=== PATIENT | male | born 1965 | race Caucasian/White ===

== ENCOUNTER 2023-05-15 18:13 | Emergency (ER) | payer OTHER, SELFPAY ==
[2023-05-15 18:25] VITALS: BP 131/83
--- NOTE | 2023-05-15 19:37 | ED.GENMED ---
History of Present Illness
General
Chief Complaint: Catheter/Tube Problem
Source: patient
Exam Limitations: none
Time Seen by Provider: 05/15/23 18:34
Nursing documentation reviewed up to this point in time: agreed with
Travel History
Have you had any contact with someone who has COVID-19?: No
Do you have any symptoms of coronavirus? Fever > 100 degrees, chills, cough, shortness of breath, sore throat, loss of taste or smell, muscle aches, or headache?: No
History of Present Illness
History of Present Illness:
Patient to ED with complaint of leaking from around pierce catheter. He reports he is due for a catheter change on Sunday. Brought self to ED for eval.
Past History
Past History
ED Past Medical History: HTN, Hypercholesterolemia and Renal failure
ED Past Surgical History: None
Social History
Tobacco: Non-smoker
Review of Systems
Review of Systems
Allergies reviewed?: Yes
All Other Systems: ROS reviewed and negative except as documented in HPI and ROS
Constitutional: Reports no symptoms
EENT: Reports no symptoms
Respiratory: Reports no symptoms
Cardiac: Reports no symptoms
ABD/GI: Reports no symptoms
: Reports other (leaking from pierce catheter)
Musculoskeletal: Reports no symptoms
Skin: Reports no symptoms
Neurological: Reports no symptoms
Phy Exam
General Physical Exam
General Presentation: well appearing and no apparent distress
General age: appears stated age
General Skin: warm and dry
General Habitus: normal
Gastrointestinal Exam
Gastrointestinal Exam: normal bowel sounds, non tender, soft and no organomegaly
Musculoskeletal Exam
Musculoskeletal Exam: full ROM
Skin Exam
Skin Exam: normal color
Psychiatric Exam
Psychiatric Exam: normal mood/affect
Course
Vital Signs
Initial and Last Documented VS:
Initial Vital Signs
Temp Pulse BP Pulse Ox
98.9 F 107 131/83 98
05/15/23 18:25 05/15/23 18:25 05/15/23 18:25 05/15/23 18:25
Last Documented Vital Signs
Temp Pulse BP Pulse Ox
98.9 F 107 131/83 98
05/15/23 18:25 05/15/23 18:25 05/15/23 18:25 05/15/23 18:25
*Critical Care Note
Total Time (30-74mins, 75-104mins- exclusive of procedures): Not Applicable
Update Note
Update Note:
Pierce changed by RN without incident. He is discharged home, will follow up with urology as scheduled.
ED Attending Note
-
Portions of this chart may have been created with voice recognition software.� Occasional wrong word or��sound alike� substitutions may have occurred due to the inherent limitations of voice recognition software.
Discharge Plan
Departure
Patient Disposition: Home (Routine Discharge)
Date of Disposition: 05/15/23
Time of Disposition: 19:23
Patient with high blood pressure during this ER visit?: No
Condition: Good
Discharge Problem:
Encounter for Pierce catheter replacement
Instructions: How to Care for Your Pierce Catheter, Male
Prescriptions:
No Action
therapeutic multivitamin Tablet
1 tab PO DAILY
ascorbic acid (vitamin C) [Vitamin C] 500 mg Tablet
500 mg PO DAILY
cholecalciferol (vitamin D3) [Vitamin D3] 25 mcg (1,000 unit) Tablet
25 mcg PO DAILY
midodrine 5 mg tablet
10 mg PO TID
ciprofloxacin HCl 500 mg tablet
500 mg PO DAILY Qty: 7 0RF
Activity Restrictions/Additional Instructions:
Follow up with your urologist as scheduled
Interventions
Interventions:
*Nursing Disposition Last Done: 05/15/23 19:38
LS-Ytyyuj-Xjunxmnwtv Assessment Last Done: 05/15/23 19:36
ED-Male Genitourinary Assessment Last Done: 05/15/23 19:36
Discharge Date and Time
Discharge Date/Time: 05/15/23 19:38
== END 2023-05-15 19:38 | disposition home or self-care (01) ==
LOC: EMR 18:13
PROVIDERS: EMERGENCY PHYSICIAN Emergency Medicine; FAMILY PHYSICIAN Family Medicine
DX: T83.031A Leakage of indwelling urethral catheter, initial encounter (principal)
CPT/HCPCS: 99283; 51702

== ENCOUNTER 2024-08-01 05:54 | Day surgery (SDC) | payer OTHER, SELFPAY ==
[2024-07-22 14:11] VITALS: BMI 38.1
[2024-08-01] VITALS (10 sets, daily range): BP systolic 108–123; BP diastolic 64–79; BMI 38.1
[2024-08-01] MEDS: TYLENOL 1000 MG PO (06:28)
[2024-08-01] MEDS: HEPARIN 5000 UNITS SC (06:29)
--- NOTE | 2024-08-01 08:45 | OR.RPT ---
Operative Report
Operative Report
Primary Surgeon: Chela
Assisting: Andrey GAVIN
Pre-op Diagnosis: Incarcerated umbilical hernia
Post-op Diagnosis: Same
Procedure Performed: Robot assisted laparoscopic repair of incarcerated umbilical hernia (rTAPP)
Anesthesia Type: GETA + TAP block
Specimen / Cultures: None
Estimated Blood Loss: 10cc
Complications: None immediate
Operative Findings: 3.5cm x 2.5 cm umbilical hernia with incarcerated fat; 15cm x 15cm bard soft mesh
Date of surgery: 08/01/24
Indications:� This 59M developed a symptomatic incarcerated umbilical hernia. Robot assisted laparoscopic repair was planned.
Description of procedure:� The patient was taken to the operating room and positioned into supine position. The patient�s abdomen was prepped and draped in standard sterile fashion. A time-out was completed verifying correct patient, procedure,
site, positioning, and implants and special equipment prior to beginning this procedure.� A stab incision was made in the left upper quadrant, a Veress needle was inserted and proper position was confirmed by aspiration and saline drop test.
Following this, pneumoperitoneum was created with insufflation of carbon dioxide to 12 mmHg. Then a 8mm robotic trocar was inserted at the left anterior axillary line at the level of the umbilicus. The laparoscope was inserted and no injuries were
identified in the area. Under direct visualization, the initial trocar was exposed and two 8mm trocars were placed a hand's breadth above and below the initial trocar under direct visualization.
Attention was turned to the defect. The peritoneum was incised several cm superior to the defect and a peritoneal flap was developed in transverse and caudad directions using blunt and sharp dissection and judicious electrocautery. The defects
measured as above. The defect was closed with 0 PDS stratafix suture. Mesh was passed into the abdomen and centered on the defect and then placed against the underside of the abdominal wall and secured in place with 2-0 vicryl sutures at all four
corners as well as under the defect. The flap was closed over the mesh and secured with 2-0 monocryl stratafix suture. A 14g angiocath was used to decompress the preperitoneal space. The flap sealed and suctioned nicely up to the abdominal wall. The
mesh did not fold nor curl. A transversus abdominis plane block was then performed under laparoscopic vision with marcaine/decadron.
After ensuring adequate hemostasis, the trocars were removed and the pneumoperitoneum allowed to escape. The trocar incisions were closed at the skin level using 4-0 monocryl and topical skin adhesive. All counts were correct. The patient tolerated
the procedure well and was taken to the postanesthesia care unit in stable condition.
[2024-08-01] MEDS: DILAUDID 0.5 MG IV (09:09)
== END 2024-08-01 11:10 | disposition home or self-care (01) ==
LOC: SDS 05:54
PROVIDERS: ATTENDING PHYSICIAN Surgery; FAMILY PHYSICIAN Family Medicine
DX: K42.0 Umbilical hernia with obstruction, without gangrene (principal)
CPT/HCPCS: 49594; 36415; 93005; C1781

== ENCOUNTER 2024-12-12 14:40 | Inpatient (IN) | payer OTHER, SELFPAY ==
[2024-12-12 08:11] VITALS: BP 169/86
--- NOTE | 2024-12-12 08:52 | ED.GENMED ---
History of Present Illness
General
Chief Complaint: Back Pain
Time Seen by Provider: 12/12/24 08:40
Nursing documentation reviewed up to this point in time: agreed with
History of Present Illness
History of Present Illness:
59-year-old male presents to the ER for evaluation of right-sided flank pain which admittedly has been occurring intermittently over the past 4 months. He has not had any previous evaluation for this discomfort. He states that it typically comes
and goes in less than an hour but it has been more consistent over the past few days. He states that the pain has been severe enough over the past week that he has missed all of his dialysis treatments. He denies peripheral edema. He denies
dyspnea. He has been having retching and dry heaving, but today had a few episodes of emesis. He states that he sometimes noticed some 'black fluid' coming out of his mouth. He denies any bright red blood via his mouth or with his bowel
movements. He states he has been having regular bowel movements. He also still does urinate and denies any hematuria. He denies any recent antibiotic usage. He did has in the past experience urinary tract infections. He states that he is very
concerned because he was told during his workup for kidney transplant that his right kidney is very large and could be problematic. He denies fevers or chills. No cough or cold symptoms. No chest pain. No syncope.
Past History
Past History
ED Past Medical History: HTN, Hypercholesterolemia and Renal failure
ED Past Surgical History: None
Social History
Tobacco: Non-smoker
Review of Systems
Review of Systems
Allergies reviewed?: Yes
Phy Exam
Physical Exam
Physical Exam:
Patient is awake, alert, appears in no acute distress, head is NCAT, PERRL, EOMI mucous membranes tacky, conjunctiva pink, heart regular rate and rhythm without murmurs or ectopy, lungs are clear to auscultation without wheezes rales or rhonchi, no
JVD, abdomen is soft and nontender on palpation, positive right CVA tenderness, negative left CVA tenderness, fistula present left upper extremity with positive thrill, extremities with trace edema symmetric, GCS is 15
Course
Orders/Labs/Results
Orders:
Orders
12/12/24 08:46
CT Abd/pel Without Iv Or Oral Urgent
Comment:
Reason For Exam: R flank pain
Cardiac Monitoring- Treatment ONCE
12/12/24 08:47
Morphine Sulfate 4 mg IV NOW STA
12/12/24 08:48
Electrocardiogram (*1) Urgent
Reason for Study: Abdominal Pain
EKG- Treatment ONCE
12/12/24 08:58
Complete Blood Count/With Diff Urgent
Comprehensive Metabolic Panel Urgent
Prothrombin Time Urgent
12/12/24 10:03
Urinalysis Reflex To Culture Urgent
Date Specimen was Collected: 12/12/24
Time Specimen was Collected: 09:54
Urine Microscopic Reflex Cult Urgent
Urine Culture Urgent
VON Source: U
Specimen Description:
Date Specimen was Collected: 12/12/24
Time Specimen was Collected: 09:54
12/12/24 11:10
CefTRIAXone [Rocephin] 1,000 mg IV NOW STA
12/12/24 11:31
Urinalysis Urgent
Date Specimen was Collected: 12/12/24
Time Specimen was Collected: 11:29
Urine Microscopic Urgent
Date Specimen was Collected: 12/12/24
Time Specimen was Collected: 11:29
12/12/24 11:53
Sterile Water [Sterile Water For Injection] 10 ml .ROUTE .K-MED ONE
12/12/24 13:49
Admit/Transfer Patient As Directed
Co-Sign Provider:
Level of Care: Inpatient admission
Assign to:: Medical/Surgical
Physician / Group: HOSPITALIST; MOI
Diagnosis: CYSTITIS, ESRD ON HD
Reason for Hospitalization: CYSTITIS, ESRD ON HD
Expected length of stay greater than two midnights?: Yes
ELOS- Estimated Length of Stay in days: 3
I certify the patient meets the requirements for IP care: Yes
12/12/24 13:50
PRN Pain Medication Management As Directed
May give lesser potent ordered pain med per pt: Yes
preference::
Protocol:: Medication orders for pain may be administered in a
manner that supports deferring to patient preference
when the pt is:
- Requesting an ordered lesser potent pain medication.
Least to most potent pain medications are defined
as: acetaminophen < NSAID < tramadol < opioids
(morphine, oxycodone, hydromorphone).
- Requesting a lesser dose of the same medication IF
ORDERED.
- Requesting a less intrusive route of administration
if both routes are prescribed by the provider (PO <
IV).
12/12/24 13:55
Code Status As Directed
Resuscitation Status: Do not resuscitate
Based on pt advanced directive or healthcare POA form: Yes
12/12/24 13:57
DNR Bracelet Application ONCE
12/12/24 14:18
Code Status As Directed
Resuscitation Status: Full Code
Abnormal Lab Results
12/12/24 12/12/24 12/12/24
08:58 10:03 11:31
RBC 3.84 L 10^6/uL
(4.70-6.10)
Hgb 12.6 L g/dL
(13.0-18.0)
MCV 102.3 H fL
(80.0-94.0)
MCH 32.8 H pg
(27.0-31.0)
MCHC 32.1 L g/dL
(33.0-37.0)
Absolute Lymphs (auto) 0.8 L 10^3/uL
(1.2-3.4)
Lymphocytes % 13.3 L %
(20.5-51.1)
Eosinophils % 6.7 H %
(0-6)
Chloride 112 H mmol/L
(98-107)
BUN 74 H mg/dl
(9-20)
Creatinine 4.4 H* mg/dL
(0.7-1.3)
Glucose 114 H mg/dl
(70-99)
AST 16 L U/L
(17-59)
Total Protein 6.1 L g/dl
(6.3-8.2)
Urine Occult Blood 3+ A
(Negative)
Ur Occult Blood Reflex 4+ A
(Negative)
Urine Nitrite Positive A
(Negative)
Ur Leukocyte Esterase 3+ A
(Negative)
Leukocyte Esterase Rfl 3+ A
(Negative)
Urine RBC 50-60 A /HPF
(0-2)
Urine WBC >100 A /HPF
(0-5)
Urine WBC (Reflex) >100 A /HPF
(0-5)
Urine Bacteria Many A
(Negative)
Urine Bacteria (Reflex) Many A
(Negative)
Urine Albumin 3+ A
(Neg - Trace)
Urine Albumin (Reflex) 4+ A
(Neg - Trace)
12/12/24 08:58
12/12/24 08:58
CBC is reassuring. Kidney function is impaired though potassium is within normal limits
Vital Signs
Initial and Last Documented VS:
Initial Vital Signs
Temp Pulse Resp BP Pulse Ox
98.2 F 92 16 169/86 98
12/12/24 08:11 12/12/24 08:11 12/12/24 08:11 12/12/24 08:11 12/12/24 08:11
Last Documented Vital Signs
Temp Pulse Resp BP Pulse Ox
97.2 F 83 20 119/74 98
12/12/24 12:46 12/12/24 12:46 12/12/24 12:46 12/12/24 12:46 12/12/24 12:46
MDM/Problems Addressed
Differential Diagnosis Includes:
Differential diagnosis to consider but not limited to pyelonephritis, renal colic, bowel obstruction, colitis, diverticulitis, electrolyte dyscrasia, sepsis along with other etiologies considered
Chronic conditions affecting care:
End-stage renal disease on dialysis, GERD, obesity, hearing impairment
*Pulse Oximetry
SaO2: 98
Oxygen Mode of Delivery: Room air
Patient hypoxic: no
*EKG
Interpreted by ED Provider?: Yes (I independently viewed and interpreted twelve-lead EKG showing normal sinus rhythm, rate 80, incomplete right bundle branch block, no ST elevation, QTc measured at 461ms, nonspecific EKG without significant change
compared to prior from 07/22/2024)
*Machine Veneer Repairer Interpretation
Rate: normal (I independently viewed and interpreted rhythm strip showing normal sinus rhythm, no ectopy, incomplete right bundle branch block)
*Critical Care Note
Total Time (30-74mins, 75-104mins- exclusive of procedures): Not Applicable
Update Note
Update Note:
Will give morphine and obtain screening labs along with noncontrast CT of the abdomen pelvis for further evaluation. Will also obtain bladder scan. Patient agrees with plan at current, declining need for antiemetic at the current time. Will
reassess
1030: Patient feeling more comfortable after morphine. I discussed with patient CT scans concerning for ineffective drainage with currently placed Wheatley catheter along with inflammation of the bladder concerning for acute cystitis. I discussed
with patient need to swap out catheter to obtain urine sample and order antibiotics. Given pt has not been able to get to dialysis due to his pain and complicating nature of UTI with indwelling catheter, will plan for IV abx and overnight
observation.
full pt presentation reviewed with the hospitalist who accepts pt for admission
ED Attending Note
-
Portions of this chart may have been created with voice recognition software.� Occasional wrong word or��sound alike� substitutions may have occurred due to the inherent limitations of voice recognition software.
Discharge Plan
Departure
Patient Disposition: Admit
Date of Disposition: 12/12/24
Time of Disposition: 11:17
Presentation/result/management discussed w/ accepting MD/DO: Hospitalist
Discharge Problem:
Complicated urinary tract infection, ESRD (end stage renal disease), Acute flank pain
Interventions
Interventions:
*Risk Screen - Suicide Last Done: 12/12/24 08:11
*General Assessment Last Done: 12/12/24 11:33
*Neglect/Abuse Screening Last Done: 12/12/24 08:11
*ED- Fall Risk Assessment Last Done: 12/12/24 09:29
ED-Musculoskeletal Assessment Last Done: 12/12/24 09:28
[2024-12-12] MEDS: MORPHINE SULFATE 4 MG IV (09:15)
[2024-12-12 09:30] LABS: Hematocrit 39.3 % (39.0-52.0); Hemoglobin 12.6 g/dL (13.0-18.0); Mean Corp Hgb Conc. 32.1 g/dL (33.0-37.0); Mean Corpuscular Volume 102.3 fL (80.0-94.0); Nucleated Red Blood Cells % 0 % (-); Platelet Count 163 10^3/uL (130-400); Red Cell Dist. Width 13.3 % (11.5-14.5)
[2024-12-12 09:32] LABS: INR 0.96; PT 13.1 Sec (11.4-14.6)
[2024-12-12 09:45] LABS: ALT (SGPT) 21 U/L (0-50); AST (SGOT) 16 U/L (17-59); Albumin 3.5 g/dl (3.5-5.0); Alkaline Phosphatase 64 U/L (38-126); Blood Urea Nitrogen 74 mg/dl (9-20); Calcium 8.7 mg/dl (8.4-10.2); Carbon Dioxide 23 mmol/L (22-30); Chloride 112 mmol/L (98-107); Glucose 114 mg/dl (70-99); Potassium 3.7 mmol/L (3.5-5.1); Sodium 138 mmol/L (135-145); Total Protein 6.1 g/dl (6.3-8.2); eGFR 14.65
[2024-12-12 10:25] LABS: Urine Character Cloudy (Clear)
[2024-12-12 10:51] LABS: Urine Squamous Cell 0-2 /LPF (Few); Urine White Cell >100 /HPF (0-5)
[2024-12-12 11:52] LABS: Urine Character Cloudy (Clear)
[2024-12-12] MEDS: ROCEPHIN 1000 MG IV (11:55)
[2024-12-12 12:17] LABS: Urine Squamous Cell 0-2 /LPF (Few); Urine White Cell >100 /HPF (0-5)
[2024-12-12 12:19] LABS: Urine Red Blood Cell 50-60 /HPF (0-2)
[2024-12-12 12:46] VITALS: BP 119/74
--- NOTE | 2024-12-12 13:24 | HPS.HSE ---
Family Physician
-
Family Physician: Stew Guardado
Chief Complaint
-
Flank pain
History of Present Illness
Patient is a 59 year old male with a past medical history of ESRD on hemodialysis, congenital ureteral malformation (corkscrew ureters) who presented to the [facility] ED with flank pain. He has been having intermittent right sided flank pain for the past
4 months which has worsened over the past few days (episodes lasting more than 1 hour recently). Patient also has had associated retching and dry heaving. He has cloudy urine at baseline. He denies nausea, vomiting, chest pain, shortness of
breath, headache, blood in stool or urinary symptoms. Patient had a few episodes of ' black fluid' coming from the mouth, but resolved after getting treated for renal failure in 2021. Similar episodes occurred approximately a month ago and have
not since. Dialysis schedule is Sunday; he was unable to make the last 3 appointments due to severe pain. Last dialysis 12/03/2024 [facility]. Last bowel movement this morning, normal. Patient states he was worked up for a
kidney transplant at [place], and was told that his right kidney is very large and could cause problems. He follows with automatic nailing machine feeder Dr. Linda Salazar ('Dr. Menendez').
Medical History
Past Medical History
Past Medical History: Reports GERD, HTN and Hypercholesterolemia
Additional Past Medical History:
ESRD
Past Surgical History: Reports Other (Hernial repair)
Additional Past Surgical History:
HERNIAL REPAIR JULY 2024
Social History
Tobacco: Non-smoker
Alcohol: Occasional (A beer 1-2 times a month)
Drug: None
Living: Alone
Family History
Family History: Cancer (Lymphoma (father), brain tumor (mother))
Allergies / Home Medications
Allergies reflects when Allergies were last updated in [facility].
Home Medications with original date entered in [facility]
Allergy/Medication List:
Allergies
Allergy/AdvReac Type Severity Reaction Status Date / Time
ciprofloxacin (From Cipro) Allergy Rash Verified 12/12/24 08:10
Home Medications
ascorbic acid (vitamin C) 500 mg tablet (Vitamin C) 500 mg PO DAILY Supplement 10/03/21
cholecalciferol (vitamin D3) 25 mcg (1,000 unit) tablet (Vitamin D3) 25 mcg PO DAILY Supplement 10/03/21
therapeutic multivitamin 1 tab PO DAILY Supplement 10/03/21
Review of Systems
-
History Source: Patient
Constitutional: Reports No Symptoms
EENT: Reports No Symptoms
Respiratory: Reports No Symptoms
Cardiac: Reports No Symptoms
Abdomen/GI: Reports Other
: Reports Flank Pain (Right)
Musculoskeletal: Reports No Symptoms
Neurological: Reports No Symptoms
Endocrine: Reports No Symptoms
Psych: Reports No Symptoms
Physical Exam
Vital Signs
Vital Signs
Temp Pulse Resp BP Pulse Ox
97.2 F 83 20 119/74 98
12/12/24 12:46 12/12/24 12:46 12/12/24 12:46 12/12/24 12:46 12/12/24 12:46
Physical Exam
General: Well Developed, Well Nourished, No Apparent Distress, Comfortable, Conversant and Obese
HEENT: NormoCephalic, Anicteric, Moist mucous membranes, Nose Appears Normal and Hearing Impaired (Hearing aid)
Respiratory: Clear and Non Labored Respirations
Cardiac: S1/S2, Regular Rhythm and Other (No murmur)
GI: Soft, Non Tender, Normal Bowel Sounds, No Hepatosplenomegaly, No Hernias and Other (Mild CVA tenderness)
Genito-urinary: Wheatley
Musculoskeletal: No Clubbing, No Cyanosis, Edema, Left Lower Extremity, Edema, Right Lower Extremity and Other (Fistula over left upper extremity with positive thrill)
Skin: Warm
Neuro: Awake and AO x 3
Psych: Calm and Intact Judgment/Insight
Laboratory Results
-
12/12/24 08:58
12/12/24 08:58
Laboratory Results
PT 13.1 Sec (11.4-14.6) 12/12/24 08:58
INR 0.96 12/12/24 08:58
Total Bilirubin 0.6 mg/dl (0.2-1.3) 12/12/24 08:58
AST 16 U/L (17-59) L 12/12/24 08:58
ALT 21 U/L (0-50) 12/12/24 08:58
Alkaline Phosphatase 64 U/L (38-126) 12/12/24 08:58
Data Reviewed
-
CT Scan: Report Reviewed by me and Discussed with Physician
Lab Data: Labs Reviewed by me and Discussed with Physician
Old Records: Reviewed
Impression/Plan
-
IMPRESSION:
59-year-old male with ESRD on hemodialysis (MWF, missed last 3 sessions), congenital ureteral malformation (corkscrew ureters), and prior nephrostomy tubes, presenting with worsening right-sided flank pain associated with retching and cloudy urine.
UA in ED showed 3+ occult blood, positive nitrites, 3+ leukocyte esterase, >[address] abdomen/pelvis 12/12/24: Wheatley catheter is present. Diffuse bladder wall thickening with stranding of the adjacent fat, findings suggestive of cystitis.
There is also significant stranding of the fat surrounding the renal pelves bilaterally, left greater than right, concerning for ascending urinary tract infection. See above narrative.
Mild elevation right hemidiaphragm. Trace amount of pleural fluid in the posterior right lower hemithorax.
Fatty infiltration of the pancreas.
PLAN:
# Ascending UTI/ Pyelonephritis
# Flank pain
CT as above
Obtain blood cultures x2, urine cultures
Continue Ceftriaxone 1g IV q24h
Adjust antibiotics per culture results and sensitives
Monitor for fever/leukocytosis/signs of sepsis
Received morphine in ED.
Continue Oxycodone 5 mg PO q4PRN for moderate pain
# ESRD on Hemodialysis
MWF schedule; last on 12/03/24 because of flank pain
Nephrology consult placed. Hemodialysis per nephro team.
Na/K normal 12/12/24. Cr 4.4, BUN 74. Trend CMP.
Wheatley catheter changed in ED 12/12/[address] Linda Salazar (Dr. Menendez) outpatient
Full code
DVT prophylaxis: SCDs
--- NOTE | 2024-12-12 14:19 | W.CON.NEPH ---
Consultation
-
Date/Time Consultation Requested: 12/12/2024 2:00 PM
Date/Time Consultation Performed: 12/12/2024 215 pM
Requesting Provider: Dr. Montez
Performing Provider: Dr. Jack
Reason for Consultation: End-stage renal disease
Medical History
-
Chief Complaint: End-stage renal disease
History of Present Illness:
The patient is a 59-year-old male with a history of end-stage renal disease who dialyzes Wednesdays and Fridays. He presented to the hospital with intermittent right flank and back pain over the past 3 months. He has not done his dialysis
since last Sunday. He dialyzes in [place]. He has a chronic indwelling Wheatley due to chronic urinary retention. He denies chest pain or shortness of breath. Of note he does have a history of urinary retention with associated Magdaleno cystitis with
prior obstructive uropathy requiring bilateral nephrostomy tube. He has chronic anemia treated with SHADI therapy. He had a prior history of hypertension but is now orthostatic requiring midodrine support on dialysis he has baseline bilateral
hearing loss.
Past Medical History
ESRD
History of bilateral obstructive uropathy requiring bilateral percutaneous nephrostomy tubes
Anemia
Orthostatic hypotension with prior history of hypertension
Dyslipidemia
Chronic Wheatley
Bilateral hearing loss
Left upper extremity AV fistula
Social History
Tobacco: Non-Smoker
Alcohol: Occasional
Drug: None
Family History
No CKD
Allergies / Home Medications
Allergy/AdvReac Type Severity Reaction Status Date / Time
ciprofloxacin (From Cipro) Allergy Rash Verified 12/12/24 08:10
�Medication �Instructions �Recorded �Confirmed �Type
ascorbic acid (vitamin C) 500 mg 500 mg PO DAILY Supplement 10/03/21 12/12/24 History
tablet (Vitamin C)
cholecalciferol (vitamin D3) 25 25 mcg PO DAILY Supplement 10/03/21 12/12/24 History
mcg (1,000 unit) tablet (Vitamin
D3)
therapeutic multivitamin 1 tab PO DAILY Supplement 10/03/21 12/12/24 History
Review of Systems
-
History Source: Patient
All other systems: Negative unless noted
: Other (Chronic Wheatley)
Musculoskeletal: Other (Back and right flank pain times several months duration intermittently which exacerbated over the last week)
Physical Exam
Vital Signs
Vital Signs
Temp Pulse Resp BP Pulse Ox
97.2 F 83 20 119/74 98
12/12/24 12:46 12/12/24 12:46 12/12/24 12:46 12/12/24 12:46 12/12/24 12:46
Lab Results
12/12/24 08:58
12/12/24 08:58
WBC 5.7 10^3/uL (4.8-10.8) 12/12/24 08:58
RBC 3.84 10^6/uL (4.70-6.10) L 12/12/24 08:58
Hgb 12.6 g/dL (13.0-18.0) L 12/12/24 08:58
Hct 39.3 % (39.0-52.0) 12/12/24 08:58
Plt Count 163 10^3/uL (130-400) 12/12/24 08:58
Sodium 138 mmol/L (135-145) 12/12/24 08:58
Potassium 3.7 mmol/L (3.5-5.1) 12/12/24 08:58
Chloride 112 mmol/L (98-107) H 12/12/24 08:58
Carbon Dioxide 23 mmol/L (22-30) 12/12/24 08:58
BUN 74 mg/dl (9-20) H 12/12/24 08:58
Creatinine 4.4 mg/dL (0.7-1.3) H* 12/12/24 08:58
eGFR 14.65 12/12/24 08:58
Glucose 114 mg/dl (70-99) H 12/12/24 08:58
Calcium 8.7 mg/dl (8.4-10.2) 12/12/24 08:58
Albumin 3.5 g/dl (3.5-5.0) 12/12/24 08:58
Physical Exam
General: AOx3, Nontoxic , NAD, obese
HEENT: PERRL, EOMI, Anicteric, Conjunctivae Clear, Ear/Nose Intact, Hearing Normal, Oropharynx Clear/Moist, Dentition Intact, Facial Symmetry, Neck Supple, Neck: Trachea Midline, No JVD and No Thyromegaly, no Bruits, bilaterally hearing impaired
Respiratory: Coarse to auscultation bilaterally with normal lung exersion
Cardiac: S1/S2 and Regular Rate/Rhythm
Breast: Deferred by me
Abdomen: Soft, Nontender, Nondistended, Normal Bowel Sounds and No Hepatosplenomegaly
Rectal: Deferred by Provider
Genito-urinary: No Costovertebral Tenderness
Extremities: No Clubbing, No Cyanosis and Noted trace pitting edema
Skin: No Rash or open lesions
Neuro: Nonfocal/Grossly Intact, CN II-XII (Intact) and Strength (Musculoskeletal exam 5 out of 5 both upper and lower extremities), bilateral hearing impairment
Hematologic/Lymphatic: No Cervical Lymphadenopathy, No Submandibular Lymphadenopathy and No Supraclavicular Lymphadenopathy
Psych: Mood/afflect pleasant, Insight/judgement good and Appropriate
Vascular: plus 1 pedal and radial pulses
Vascular Access: AVF (Left upper extremity AV fistula with good thrill and bruit)
Data Reviewed
-
CT Scan: Report Reviewed by me (CT of the abdomen and pelvis reviewed notable for bilateral renal pelvic fat stranding possible cystitis)
Medical Tests (Nuc Med, Echo etc): Other (Reviewed EKG report which noted right bundle branch block incomplete normal sinus rhythm no evidence of hyperacute T wave)
Labs: Labs Reviewed by me (BMP CBC)
Old Records: Reviewed (Reviewed previous nephrology consult for end-stage renal disease with dialysis requirement from 10/04/2021 and electronic medical)
Assessment/Plan
-
Impression:
ESRD [facility]
Suspected cystitis versus pyelonephritis
Chronic indwelling Wheatley
Anemia of chronic kidney disease-
Bilateral hearing impairment
Plan:
Although patient has not been dialyzed in a week he is grossly baseline nonoliguric via Wheatley
No evidence of respiratory distress or gross electrolyte abnormalities or uremia by review of BMP
Henceforth dialysis will be planned for tomorrow
SHADI will be provided for anemia as needed
Antibiotic therapy to be directed to source dosed for ESRD
--- NOTE | 2024-12-12 15:54 | W.PN.UPDATE ---
Update Note
Progress Note Update
Seen and examined the patient with the resident. Agree with the plan set forth by the resident. Please see changes in my documentation
59-year-old with flank pain for the past 3 to 4 months and more pain recently. He stopped going for dialysis since December 03. He has a chronic Wheatley catheter
On examination awake alert oriented
Cardiovascular system S1-S2 appreciated
Chest clear to auscultation
Abdomen soft and nontender
Wheatley catheter
No pedal edema
CT scan of the abdomen pelvis-Wheatley catheter. Diffuse bladder wall thickening with stranding of the adjacent fat findings suggestive of cystitis. Also significant stranding of the fat surrounding the renal pelvis bilaterally left greater than
right concerning for ascending UTI. Fatty infiltration of the pancreas. Mild elevation of the right hemidiaphragm. Trace amount of pleural fluid in the posterior right lower hemithorax
EKG-sinus rhythm. Incomplete right bundle branch block
# Flank pain
Likely secondary to catheter related UTI
Patient has chronic Wheatley catheter with history of bilateral percutaneous nephrostomy tubes in the past and now has Wheatley catheter
IV antibiotics-ceftriaxone
Follow cultures
# End-stage renal disease
Follows up with Dr. Linda Menendez in [place] and goes to [facility] dialysis[facility]Sunday
Left upper extremity dialysis fistula with good thrill
Nephrology consulted for hemodialysis
No evidence of fluid overload or acute need for dialysis
Scheduled for tomorrow
# Chronic anemia secondary to ESRD
# Orthostatic hypotension-chronic
# GERD-not on any medicines as outpatient now
# Bilateral hearing loss
# Obesity
# DVT prophylaxis-subcutaneous heparin
# Full code
Part of this note was created using voice recognition system. Occasional wrong word or��sound alike� substitutions may have inadvertently occurred due to the inherent limitations of voice recognition software. If noted kindly bring it to my
attention for correction.
[2024-12-12 16:55] LABS: Hepatitis B Surface Antigen Negative (Negative)
[2024-12-12 23:30] VITALS: BP 133/78
[2024-12-13 07:44] VITALS: BP 139/73
[2024-12-13 08:36] LABS: Hematocrit 37.2 % (39.0-52.0); Hemoglobin 12.2 g/dL (13.0-18.0); Mean Corp Hgb Conc. 32.8 g/dL (33.0-37.0); Mean Corpuscular Volume 96.9 fL (80.0-94.0); Nucleated Red Blood Cells % 0 % (-); Platelet Count 176 10^3/uL (130-400); Red Cell Dist. Width 13.5 % (11.5-14.5)
[2024-12-13 08:59] LABS: ALT (SGPT) 18 U/L (0-50); AST (SGOT) 14 U/L (17-59); Albumin 3.3 g/dl (3.5-5.0); Alkaline Phosphatase 59 U/L (38-126); Blood Urea Nitrogen 70 mg/dl (9-20); Calcium 8.7 mg/dl (8.4-10.2); Carbon Dioxide 19 mmol/L (22-30); Chloride 114 mmol/L (98-107); Glucose 89 mg/dl (70-99); Magnesium 2.1 mg/dl (1.6-2.3); Potassium 4.2 mmol/L (3.5-5.1); Sodium 137 mmol/L (135-145); Total Protein 5.9 g/dl (6.3-8.2); eGFR 17.47
--- NOTE | 2024-12-13 09:40 | W.PN.NEPH.HD ---
Assessment
-
Patient seen on dialysis
Systolic blood pressure stable but has been tenuous and UF was cut back to 2 kg despite the fact that patient was 5 kg over dry weight
His dry weight is 117
AV fistula with good function
Next dialysis will be Sunday
Blood cultures pending
Rocephin
Progress Note - Hemodialysis
-
Date of Service: December 13, 2024
Duration: 30 minutes and 3 hours
Potassium Bath: 3
Calcium Bath: 2.5
Opti-Dialyzer: 160
Ultrafiltration: Other
Blood Flow: 400
Dialysate Flow: 600
Heparin: None
EPO: None
[2024-12-13 11:04] LABS: Urine Character Cloudy (Clear)
--- NOTE | 2024-12-13 11:04 | W.PN.HOSP.TC ---
Today's Communication/Plan
-
Await urine cultures
Continue hemodialysis per schedule
PT eval
Assessment / Plan
Assessment / Plan
59-year-old with flank pain for the past 3 to 4 months and more pain recently. He stopped going for dialysis since December 03. He has a chronic Wheatley catheter
No flank pain today
On examination awake alert oriented
Cardiovascular system S1-S2 appreciated
Chest clear to auscultation
Abdomen soft and nontender
Wheatley catheter
No pedal edema
CT scan of the abdomen pelvis-Wheatley catheter. Diffuse bladder wall thickening with stranding of the adjacent fat findings suggestive of cystitis. Also significant stranding of the fat surrounding the renal pelvis bilaterally left greater than
right concerning for ascending UTI. Fatty infiltration of the pancreas. Mild elevation of the right hemidiaphragm. Trace amount of pleural fluid in the posterior right lower hemithorax
EKG-sinus rhythm. Incomplete right bundle branch block
# Flank pain
Likely secondary to catheter related UTI
Patient has chronic Wheatley catheter with history of bilateral percutaneous nephrostomy tubes in the past and now has Wheatley catheter
IV antibiotics-ceftriaxone
Follow cultures
# End-stage renal disease
Follows up with Dr. Linda Edwards in [place] and goes [facility]
Left upper extremity dialysis fistula with good thrill
Nephrology consulted for hemodialysis
No evidence of fluid overload or acute need for dialysis
Continue dialysis per nephrology
# Chronic anemia secondary to ESRD
# Orthostatic hypotension-chronic
# GERD-not on any medicines as outpatient now
# Bilateral hearing loss
# Obesity
# DVT prophylaxis-subcutaneous heparin
# Full code
Discussed with nursing and dialysis nursing at bedside
Part of this note was created using voice recognition system. Occasional wrong word or��sound alike� substitutions may have inadvertently occurred due to the inherent limitations of voice recognition software. If noted kindly bring it to my
attention for correction.
Anticipated Discharge: 24 - 48 hours
Subjective/Interval History
-
Date of Service: December 13, 2024
Objective Data
-
Labs:
Laboratory Results
12/13/24
08:10
WBC 6.2
Hgb 12.2 L
Hct 37.2 L
Plt Count 176
Sodium 137
Potassium 4.2
Chloride 114 H
Carbon Dioxide 19 L
BUN 70 H
Creatinine 3.8 H
Glucose 89
Calcium 8.7
Total Bilirubin 0.6
AST 14 L
ALT 18
Alkaline Phosphatase 59
Vital Signs:
Vital Signs
Temp Pulse Resp BP Pulse Ox
98.1 F 74 18 139/73 97
12/13/24 07:44 12/13/24 07:44 12/13/24 07:44 12/13/24 07:44 12/13/24 07:44
I&O
12/12/24 12/13/24 12/14/24
06:59 06:59 06:59
Intake Total 480 / 480
Output Total 650 / 650
Balance -170 / -170
[2024-12-13] MEDS: STERILE WATER FOR INJECTION 10 ML IV (11:29)
[2024-12-13] MEDS: ROCEPHIN 1000 MG IV (11:30)
[2024-12-13 11:45] LABS: Urine Squamous Cell None seen /LPF (Few); Urine White Cell >100 /HPF (0-5)
--- NOTE | 2024-12-13 14:13 | CM ---
CM following re: discharge planning.
Reviewed pt's chart, met with pt.
Pt is a 59 year old male, admitted with primary dx of Flank pain.
Pt reports he lives alone in a 2SH, has no children, has a sister who has Down syndrome and she lives in a boarding home. 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 Pt is on HD, [facility], [facility], chair time 5:30 a.m., pt drives
to and from HD treatment.
PCP: Stew Guardado
Pharmacy: [facility]
D/C plan: home with resumptions of outpatient HD treatment at [facility]. Pt stated he will drive home.
CM will follow with discharge plan updates as hospitalization progresses
[2024-12-13 15:31] VITALS: BP 107/66
[2024-12-13 16:19] VITALS: BP 134/80; BP 139/57; PULSE 91; O2SAT 97
[2024-12-13 23:34] VITALS: BP 121/76
[2024-12-14] VITALS: BP 136/74
[2024-12-14 07:46] VITALS: BP 132/70
[2024-12-14 10:41] LABS: Hematocrit 42.0 % (39.0-52.0); Hemoglobin 13.8 g/dL (13.0-18.0); Mean Corp Hgb Conc. 32.9 g/dL (33.0-37.0); Mean Corpuscular Volume 96.6 fL (80.0-94.0); Nucleated Red Blood Cells % 0 % (-); Platelet Count 172 10^3/uL (130-400); Red Cell Dist. Width 13.3 % (11.5-14.5)
[2024-12-14] MEDS: ROCEPHIN 1000 MG IV (11:06)
[2024-12-14] MEDS: STERILE WATER FOR INJECTION 10 ML IV (11:06)
[2024-12-14 11:09] LABS: Blood Urea Nitrogen 41 mg/dl (9-20); Calcium 8.7 mg/dl (8.4-10.2); Carbon Dioxide 27 mmol/L (22-30); Chloride 104 mmol/L (98-107); Glucose 95 mg/dl (70-99); Potassium 3.5 mmol/L (3.5-5.1); Sodium 136 mmol/L (135-145); eGFR 19.28
--- NOTE | 2024-12-14 11:12 | W.PN.NEPH.PH ---
Today's Communication / Plan
-
Dialysis tomorrow
Assessment/Plan
-
Impression:
ESRD [facility]
Suspected cystitis versus pyelonephritis
Chronic indwelling Wheatley
Anemia of chronic kidney disease-
Bilateral hearing impairment
Plan:
Although patient has not been dialyzed in a week he is grossly baseline nonoliguric via Wheatley
No evidence of respiratory distress or gross electrolyte abnormalities or uremia by review of BMP
Henceforth dialysis will be planned for tomorrow, will attempt to bring patient back to his dry weight of 117 kg
SHADI will be provided for anemia as needed
Antibiotic therapy to be directed to source dosed for ESRD, remains on Rocephin
Repeat urine culture pending this more
-
-
Date of Service: December 14, 2024
CC / HPI / ROS
-
Chief Complaint:
ESRD
History of Present Illness:
ESRD Sunday at [facility] dialysis unit
Hemodynamically stable
Remains on Rocephin for suspected UTI
Review of Systems:
Bilateral hearing loss
Chronic Wheatley catheter: nonoliguric
No shortness of breath
Labs
-
Labs:
WBC 5.6 10^3/uL (4.8-10.8) 12/14/24 09:55
RBC 4.35 10^6/uL (4.70-6.10) L 12/14/24 09:55
Hgb 13.8 g/dL (13.0-18.0) 12/14/24 09:55
Hct 42.0 % (39.0-52.0) 12/14/24 09:55
Plt Count 172 10^3/uL (130-400) 12/14/24 09:55
Sodium 136 mmol/L (135-145) 12/14/24 09:55
Potassium 3.5 mmol/L (3.5-5.1) 12/14/24 09:55
Chloride 104 mmol/L (98-107) 12/14/24 09:55
Carbon Dioxide 27 mmol/L (22-30) 12/14/24 09:55
BUN 41 mg/dl (9-20) H 12/14/24 09:55
Creatinine 3.5 mg/dL (0.7-1.3) H 12/14/24 09:55
eGFR 19.28 12/14/24 09:55
Glucose 95 mg/dl (70-99) 12/14/24 09:55
Calcium 8.7 mg/dl (8.4-10.2) 12/14/24 09:55
Albumin 3.3 g/dl (3.5-5.0) L 12/13/24 08:10
Physical Exam
-
Vital Signs:
Vital Signs
Temp Pulse Resp BP Pulse Ox
98.6 F 83 18 132/70 98
12/14/24 07:46 12/14/24 07:46 12/14/24 07:46 12/14/24 07:46 12/14/24 07:46
Cardiovascular:: Regular rate and rhythm
Respiratory:: Bilateral: Coarse
Lung Excursion:: Normal
Abdomen:: Nontender and Soft
Bowel Sounds:: Normal
Wheatley Catheter: Yes
--- NOTE | 2024-12-14 12:06 | W.PN.HOSP.TC ---
Today's Communication/Plan
-
cont abx
follow culture speciation sensitivities
HD as per nephro
Assessment / Plan
Assessment / Plan
Physical Exam
General: No acute distress, appears comfortable
HEENT: Hard of hearing, normocephalic, atraumatic, moist mucus membranes
Cardio: S1-S2 NSR no murmurs
Pulm: clear to auscultation, no crackles, wheezing, stridor
Abdomen: soft and nontender, bowel sounds present, no flank tenderness
: Wheatley catheter present draining clear yellow urine
Neuro: AOx3 conversant coherent
Psych: Calm
59M with flank pain for the past 3 to 4 months and more pain recently. He stopped going to dialysis since December 03 due to the pain. He has a chronic Wheatley catheter. Admitted treated for CAUTI and associate pyelonephritis.
CT scan of the abdomen pelvis-Wheatley catheter. Diffuse bladder wall thickening with stranding of the adjacent fat findings suggestive of cystitis. Also significant stranding of the fat surrounding the renal pelvis bilaterally left greater than
right concerning for ascending UTI. Fatty infiltration of the pancreas. Mild elevation of the right hemidiaphragm. Trace amount of pleural fluid in the posterior right lower hemithorax
EKG-sinus rhythm. Incomplete right bundle branch block
# Flank pain
Likely secondary to catheter related UTI
Patient has chronic Wheatley catheter with history of bilateral percutaneous nephrostomy tubes in the past and now has Wheatley catheter
IV antibiotics-ceftriaxone
Blood cx's NGTD
urine cx's gram neg bacilli follow up speciation sensitivities
# ESRD
Follows with Dr. Linda Edwards in [place] and goes to [facility] dialysis-Sunday
Left upper extremity dialysis fistula with good thrill
Nephrology eval appreciated
cont HD as per Nephro
# Chronic anemia secondary to ESRD
# Orthostatic hypotension-chronic
# GERD-not on any medicines as outpatient now
# Bilateral hearing loss
# Obesity
# DVT prophylaxis-subcutaneous heparin
# Full code
I spent a total of 40 minutes with the patient or on the floor. More than 50% of this time involved counseling and coordination of care.
Anticipated Discharge: 24 - 48 hours
Subjective/Interval History
-
Date of Service: December 14, 2024
No acute distress, appears comfortable at this time, ambulating without need for assist device. Reports resolution of flank pain. Denies new acute issues at this time.
Objective Data
-
Labs:
Laboratory Results
12/14/24
09:55
WBC 5.6
Hgb 13.8
Hct 42.0
Plt Count 172
Sodium 136
Potassium 3.5
Chloride 104
Carbon Dioxide 27
BUN 41 H
Creatinine 3.5 H
Glucose 95
Calcium 8.7
Vital Signs:
Vital Signs
Temp Pulse Resp BP Pulse Ox
98.6 F 83 18 132/70 98
12/14/24 07:46 12/14/24 07:46 12/14/24 07:46 12/14/24 07:46 12/14/24 07:46
I&O
12/13/24 12/14/24 12/15/24
06:59 06:59 06:59
Intake Total 480 / 480 960 / 960
Output Total 650 / 650 950 / 950
Balance -170 / -170
[2024-12-14 16:14] VITALS: BP 126/78
[2024-12-15 07:37] VITALS: BP 127/74
[2024-12-15 07:47] LABS: Hematocrit 38.9 % (39.0-52.0); Hemoglobin 12.7 g/dL (13.0-18.0); Mean Corp Hgb Conc. 32.6 g/dL (33.0-37.0); Mean Corpuscular Volume 96.8 fL (80.0-94.0); Nucleated Red Blood Cells % 0 % (-); Platelet Count 175 10^3/uL (130-400); Red Cell Dist. Width 13.2 % (11.5-14.5)
[2024-12-15 08:24] LABS: Blood Urea Nitrogen 43 mg/dl (9-20); Calcium 8.5 mg/dl (8.4-10.2); Carbon Dioxide 25 mmol/L (22-30); Chloride 106 mmol/L (98-107); Glucose 95 mg/dl (70-99); Potassium 3.6 mmol/L (3.5-5.1); Sodium 139 mmol/L (135-145); eGFR 18.64
--- NOTE | 2024-12-15 08:55 | W.PN.HOSP.TC ---
Addendum entered and electronically signed by Kayla Brewer MD 12/15/24 11:34:
Attending�addendum:
I saw and evaluated the patient. I reviewed the resident�s note and agree with findings and plan as documented in the resident�s note.��patient seen and examined at bedside, denies any chest pain or shortness of breath, no abdominal pain, no nausea,
no vomiting, no diarrhea or constipation.
Explained to the patient at bedside the mechanism of getting frequent UTIs.
Culture came today for E. coli and Klebsiella.
Will be discharged on Augmentin
Physical�exam:
GENERAL : Patient is awake, alert, oriented x3
HEENT: Nonicteric sclerae, PERRLA, EOMI. Oropharynx clear. Moist mucous membranes. Conjunctivae appear well perfused.
CHEST: Chest wall is nontender.
HEART: Regular rate and rhythm without murmurs.
LUNGS: Clear to auscultation bilaterally.
ABDOMEN: Soft, positive bowel sounds, nontender, no organomegaly.
RECTAL: Deferred.
MUSCLES/EXTREMITIES: No abnormal range of motion, no swelling.SKIN: No rash, no excessive bruising, petechiae, or purpura.
NEUROLOGIC: Cranial nerves II-XII intact without motor/sensory deficit.
�
Assessment/plan:
Ascending UTI/pyelonephritis.
Urine Culture - Final Urine Escherichia coli Klebsiella oxytoca
Pansensitive, will be discharged on Augmentin
End-stage disease on dialysis.
Continue dialysis Sunday, Sunday, Sunday as outpatient.
Discharge today after the
CODE STATUS: Full code
DVT prophylaxis: SCDs
Diet: Renal diet
Disposition: Discharge today after dialysis
�
Total time spent on today�s encounter was 51 minutes which included time spent in counseling the patient/family regarding diagnosis and treatment plan as listed above, goals of care, and symptom management. Case was discussed with nursing staff,
specialists, and care coordinators/case management. All labs and imaging personally reviewed by me. Remainder the time spent in detailed review of previous records, lab data, imaging, and other medical provider documentation.
Original Note:
Today's Communication/Plan
-
DC patient after HD today
Switch to Augmentin 250 mg BID x 7 days upon discharge
Assessment / Plan
Assessment / Plan
ASSESSMENT:
59-year-old male with ESRD on hemodialysis (MWF, missed since 12/03), congenital ureteral malformation (corkscrew ureters), and chronic Wheatley, presenting with worsening right-sided flank pain associated with retching and cloudy urine. Patient
admitted for catheter associated UTI and pyelonephritis.
CT abdomen/pelvis 12/12/24: Wheatley catheter is present. Diffuse bladder wall thickening with stranding of the adjacent fat, findings suggestive of cystitis.There is also significant stranding of the fat surrounding the renal pelves bilaterally, left
greater than right, concerning for ascending urinary tract infection. Mild elevation right hemidiaphragm. Trace amount of pleural fluid in the posterior right lower hemithorax. Fatty infiltration of the pancreas.
PLAN:
# Ascending UTI/ Pyelonephritis
# Flank pain
CT as above
Urine culture shows E coli and Klebsiella with sensitivity to Augmentin. Plan to dc patient on Augmentin 250 mg BID x 7 days after HD today.
Blood cultures negative
Continue Ceftriaxone 1g IV q24h
Monitor for fever/leukocytosis/signs of sepsis
Continue Oxycodone 5 mg PO q4PRN for moderate pain
# ESRD on Hemodialysis
MWF schedule; last outpatient dialysis on 12/03/24 because of flank pain
Nephrology consulted. Hemodialysis per nephro team- HD today.
Na/K normal 12/12/24. Cr 4.4, BUN 74. Trend CMP.
Wheatley catheter changed in ED 12/12/[address] Linda Salazar (Dr. Menendez) outpatient
# Chronic anemia secondary to ESRD
# Orthostatic hypotension-chronic
# GERD-not on any meds as outpatient
# Bilateral hearing loss
# Obesity
Full code DVT prophylaxis: SCDs
Anticipated Discharge: Within 24 hours
Subjective/Interval History
-
Date of Service: December 15, 2024
Patient evaluated at bedside. He states his flank pain has well improved since presentation. No new complaints.
Objective Data
-
Labs:
Laboratory Results
12/15/24
06:42
WBC 5.6
Hgb 12.7 L
Hct 38.9 L
Plt Count 175
Sodium 139
Potassium 3.6
Chloride 106
Carbon Dioxide 25
BUN 43 H
Creatinine 3.6 H
Glucose 95
Calcium 8.5
Vital Signs:
Vital Signs
Temp Pulse Resp BP Pulse Ox
97.2 F 82 16 127/74 95
12/15/24 07:37 12/15/24 07:37 12/15/24 07:37 12/15/24 07:37 12/15/24 07:37
I&O
12/14/24 12/15/24 12/16/24
06:59 06:59 06:59
Intake Total 960 / 960 800 / 800
Output Total 950 / 950 350 / 350
Balance 450 / 450
Review of Systems
-
History Source: Patient
All other systems: Reviewed and negative
Constitutional: Reports No Symptoms
EENT: Reports No Symptoms Reported
Respiratory: Reports No Symptoms
Cardiac: Reports No Symptoms
Breast: Reports No Symptoms
Musculoskeletal: Reports No Symptoms
Skin: Reports No Symptoms
Neuro: Reports No Symptoms
Endocrine: Reports No Symptoms
Physical Exam
-
General: Well Developed, Well Nourished, No Apparent Distress, Comfortable, Conversant and Obese
HEENT: Normocephalic, Atraumatic and Moist Mucous Membranes
Respiratory: Clear to Auscultation
Cardiac: Regular Rhythm and S1/S2
GI: Soft, Nontender and Nondistended
Musculoskeletal: No Clubbing, No Cyanosis, Edema, Right Lower Extrem and Edema, Left Lower Extrem
Skin: Warm
Neuro: Awake and AO x 3
Psych: Calm and Intact Judgement/Insight
Data Reviewed
-
Labs: Labs Reviewed by me and Discussed with Physician
Old Records: Reviewed
--- NOTE | 2024-12-15 14:40 | W.PN.NEPH.HD ---
Assessment
-
Seen on HD. no complaints. VSS, access ok
for dc
Progress Note - Hemodialysis
-
Date of Service: December 15, 2024
Duration: 30 minutes and 3 hours
Potassium Bath: 3
Calcium Bath: 2.5
Opti-Dialyzer: 160
Ultrafiltration: Other (kg)
Blood Flow: 400
Dialysate Flow: 600
Heparin: 0
EPO: 0
--- NOTE | 2024-12-15 15:18 | CM ---
CM following re: discharge planning.
Reviewed pt's chart, met with pt.
Pt lives alone in a 2SH, has no children, has a sister who has Down syndrome and she lives in a boarding home. 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 [facility], M[facility], chair time 5:30 a.m., pt drives to and
from HD treatment.
PT evaluation noted - no skilled PT needs anticipated.
CM will call [facility] outpatient HD treatment center at discharge [phone] and will fax pt's clinical with flow sheets to [facility] [phone]
D/C plan: home with resumptions of outpatient HD treatment at [facility]. Pt stated he will drive home.
CM will follow with discharge plan updates as hospitalization progresses
[2024-12-15 15:37] VITALS: BP 132/71
[2024-12-15] MEDS: ROCEPHIN 1000 MG IV (17:55)
[2024-12-15] MEDS: STERILE WATER FOR INJECTION 10 ML IV (17:55)
[2024-12-15 23:19] VITALS: BP 130/69
[2024-12-16 06:30] LABS: Hematocrit 37.2 % (39.0-52.0); Hemoglobin 12.6 g/dL (13.0-18.0); Mean Corp Hgb Conc. 33.9 g/dL (33.0-37.0); Mean Corpuscular Volume 96.1 fL (80.0-94.0); Nucleated Red Blood Cells % 0 % (-); Platelet Count 144 10^3/uL (130-400); Red Cell Dist. Width 13.1 % (11.5-14.5)
[2024-12-16 07:13] LABS: Blood Urea Nitrogen 23 mg/dl (9-20); Calcium 8.3 mg/dl (8.4-10.2); Carbon Dioxide 27 mmol/L (22-30); Chloride 102 mmol/L (98-107); Glucose 85 mg/dl (70-99); Potassium 3.3 mmol/L (3.5-5.1); Sodium 133 mmol/L (135-145); eGFR 26.33
[2024-12-16 07:31] VITALS: BP 120/72
--- NOTE | 2024-12-16 08:32 | W.PN.HOSP.TC ---
Addendum entered and electronically signed by Kayla Brewer MD 12/16/24 11:03:
Attending�addendum:
I saw and evaluated the patient. I reviewed the resident�s note and agree with findings and plan as documented in the resident�s note.��patient seen and examined at bedside, denies any chest pain or shortness of breath, no abdominal pain, no nausea,
no vomiting, no diarrhea or constipation.
Urine culture positive for E. coli and Klebsiella.
Will be discharged on Augmentin
Physical�exam:
GENERAL : Patient is awake, alert, oriented x3
HEENT: Nonicteric sclerae, PERRLA, EOMI. Oropharynx clear. Moist mucous membranes. Conjunctivae appear well perfused.
CHEST: Chest wall is nontender.
HEART: Regular rate and rhythm without murmurs.
LUNGS: Clear to auscultation bilaterally.
ABDOMEN: Soft, positive bowel sounds, nontender, no organomegaly.
RECTAL: Deferred.
MUSCLES/EXTREMITIES: No abnormal range of motion, no swelling.SKIN: No rash, no excessive bruising, petechiae, or purpura.
NEUROLOGIC: Cranial nerves II-XII intact without motor/sensory deficit.
�
Assessment/plan:
Ascending UTI/pyelonephritis.
Urine Culture - Final Urine Escherichia coli Klebsiella oxytoca
Pansensitive, will be discharged on Augmentin
End-stage disease on dialysis.
Continue dialysis Sunday, Sunday, Sunday as outpatient.
Discharge today on oral Augmentin.
Abnormal labs:
Wounds:
CODE STATUS: Full code
DVT prophylaxis: SCDs
Diet: Renal diet
Disposition: Discharge home today.
Total time spent on today's encounter was 51 minutes which included time spent in counseling the patient/family regarding diagnosis and treatment plan as listed above, goals of care, and symptom management. Case was discussed with nursing staff,
specialists, and care coordinators/case management. All labs and imaging personally reviewed by me. Remainder the time spent in detailed review of previous records, lab data, imaging, and other medical provider documentation.
Original Note:
Today's Communication/Plan
-
Discharge home today with Augmentin 250 mg BID x 7 days
Assessment / Plan
Assessment / Plan
ASSESSMENT:
59-year-old male with ESRD on hemodialysis (MWF, missed since 12/03), congenital ureteral malformation (corkscrew ureters), and chronic Wheatley, presenting with worsening right-sided flank pain associated with retching and cloudy urine. Patient
admitted for catheter associated UTI and pyelonephritis.
CT abdomen/pelvis 12/12/24: Wheatley catheter is present. Diffuse bladder wall thickening with stranding of the adjacent fat, findings suggestive of cystitis.There is also significant stranding of the fat surrounding the renal pelves bilaterally, left
greater than right, concerning for ascending urinary tract infection. Mild elevation right hemidiaphragm. Trace amount of pleural fluid in the posterior right lower hemithorax. Fatty infiltration of the pancreas.
PLAN:
# Acute Ascending UTI/ Pyelonephritis
# Flank pain
CT as above
Urine culture shows E coli and Klebsiella with sensitivity to Augmentin. Plan to dc patient on Augmentin 250 mg BID x 7 days today.
Blood cultures negative
Continue Ceftriaxone 1g IV q24h
Monitor for fever/leukocytosis/signs of sepsis
Continue Oxycodone 5 mg PO q4PRN for moderate pain
# ESRD on Hemodialysis
[facility] schedule; last outpatient dialysis on 12/03/24 because of flank pain
Nephrology consulted. Hemodialysis per nephro team- HD performed 12/13 and 12/15.
Na/K normal 12/12/24. Cr 4.4, BUN 74, improved to Cr 2.7, BUN 23 12/16/24.
Wheatley catheter changed in ED 12/12/[address] Linda Salazar (Dr. Menendez) outpatient
# Hypokalemia
K 3.3 12/16/24
Ordered K 20 mEq today
# Chronic anemia secondary to ESRD
# Orthostatic hypotension-chronic
# GERD-not on any meds as outpatient
# Bilateral hearing loss
# Obesity
Full code DVT prophylaxis: SCDs
Anticipated Discharge: Today
Subjective/Interval History
-
Date of Service: December 16, 2024
Patient evaluated at bedside this morning. Patient felt weak after his dialysis yesterday, and opted to stay another night. He states he feels well now, no new complaints. Ready to go home today.
Objective Data
-
Labs:
Laboratory Results
12/16/24
06:09
WBC 6.2
Hgb 12.6 L
Hct 37.2 L
Plt Count 144
Sodium 133 L
Potassium 3.3 L
Chloride 102
Carbon Dioxide 27
BUN 23 H
Creatinine 2.7 H
Glucose 85
Calcium 8.3 L
Vital Signs:
Vital Signs
Temp Pulse Resp BP Pulse Ox
98.2 F 80 16 120/72 95
12/16/24 07:31 12/16/24 07:31 12/16/24 07:31 12/16/24 07:31 12/16/24 07:31
I&O
12/15/24 12/16/24 12/17/24
06:59 06:59 06:59
Intake Total 800 / 800 610 / 610
Output Total 350 / 350 375 / 375
Balance 450 / 450 235 / 235
Review of Systems
-
History Source: Patient
Constitutional: Reports No Symptoms
EENT: Reports No Symptoms Reported
Respiratory: Reports No Symptoms
Cardiac: Reports No Symptoms
Abdomen/GI: Reports No Symptoms
Breast: Reports No Symptoms
Genitourinary: Reports No Symptoms
Musculoskeletal: Reports No Symptoms
Skin: Reports No Symptoms
Neuro: Reports No Symptoms
Hematologic / Lymphatic: Reports No Symptoms
Physical Exam
-
General: Well Developed, Well Nourished, No Apparent Distress, Comfortable, Conversant and Obese
HEENT: Normocephalic, Atraumatic, Moist Mucous Membranes, Nose Appears Normal and Ears Appear Normal
Respiratory: Clear to Auscultation
Cardiac: Regular Rhythm and S1/S2
GI: Soft, Nontender, Nondistended, Normal Bowel Sounds and No Hepatosplenomegaly
Musculoskeletal: No Clubbing and No Cyanosis
Skin: Warm
Neuro: Awake and AO x 3
Psych: Calm
Data Reviewed
-
Labs: Labs Reviewed by me and Discussed with Physician
Old Records: Reviewed
[2024-12-16] MEDS: KLOR-CON 20 MEQ PO (10:26)
--- NOTE | 2024-12-16 10:37 | PN.CDI ---
CDI
- -
CDI:
Physician Documentation Request
Admit Date: 12/12/24 14:40
Dear Doctor Darlin,
Patient progress note includes a diagnosis of Ascending UTI/pyelonephritis
Please clarify which of the following accurately represents the acuity of the pyelonephritis:
____ Acute
Acute on Chronic
Chronic
____ Other
Use of terms such as suspected, likely, concern for, or probable (associated with a specific diagnosis that is being evaluated, monitored, or treated as if it exists) are acceptable and can be coded in the inpatient setting, when documented at the
time of discharge.
Thank you,
Svetlana Pope RN, BSN
CDI Specialist
tiger text
Please use your independent medical judgment in providing your response.
--- NOTE | 2024-12-16 10:54 | W.DCSUMMARY ---
Addendum entered and electronically signed by Kayla Brewer MD 12/16/24 11:06:
Acute Ascending UTI/pyelonephritis
Addendum entered and electronically signed by Kayla Brewer MD 12/16/24 11:04:
Attending�addendum:
I saw and evaluated the patient. I reviewed the resident�s note and agree with findings and plan as documented in the resident�s note.��patient seen and examined at bedside, denies any chest pain or shortness of breath, no abdominal pain, no nausea,
no vomiting, no diarrhea or constipation.
Urine culture positive for E. coli and Klebsiella.
Will be discharged on Augmentin
Physical�exam:
GENERAL : Patient is awake, alert, oriented x3
HEENT: Nonicteric sclerae, PERRLA, EOMI. Oropharynx clear. Moist mucous membranes. Conjunctivae appear well perfused.
CHEST: Chest wall is nontender.
HEART: Regular rate and rhythm without murmurs.
LUNGS: Clear to auscultation bilaterally.
ABDOMEN: Soft, positive bowel sounds, nontender, no organomegaly.
RECTAL: Deferred.
MUSCLES/EXTREMITIES: No abnormal range of motion, no swelling.SKIN: No rash, no excessive bruising, petechiae, or purpura.
NEUROLOGIC: Cranial nerves II-XII intact without motor/sensory deficit.
�
Assessment/plan:
Ascending UTI/pyelonephritis.
Urine Culture - Final Urine Escherichia coli Klebsiella oxytoca
Pansensitive, will be discharged on Augmentin
End-stage disease on dialysis.
Continue dialysis Sunday, Sunday, Sunday as outpatient.
Discharge today on oral Augmentin.
Abnormal labs:
Wounds:
CODE STATUS: Full code
DVT prophylaxis: SCDs
Diet: Renal diet
Disposition: Discharge home today.
Total time spent on today's encounter was 40 minutes which included time spent in counseling the patient/family regarding diagnosis and treatment plan as listed above, goals of care, and symptom management. Case was discussed with nursing staff,
specialists, and care coordinators/case management. All labs and imaging personally reviewed by me. Remainder the time spent in detailed review of previous records, lab data, imaging, and other medical provider documentation.
Original Note:
Documented by User: Stacey Saeed MD, Resident 12/16/24 10:55
Discharge Summary
Discharge Data
Date of Admission: 12/12/24
Date of Discharge: 12/16/24
-
Pending Results: No
Hospital Course
Discharging Physician : Dr. Kayla Brewer and Dr. Stacey Saeed
Disposition : Home
Primary care physician : Dr. Stew Guardado
Principal Discharge diagnosis : Ascending UTI/Pyelonephritis, ESRD on hemodialysis
Chronic Discharge diagnosis : GERD, obesity, chronic anemia secondary to ESRD, orthostatic hypotension
Hospital Course : A 59 year old male with ESRD on hemodialysis (Sunday/Sunday/Sunday schedule), congenital ureteral malformation (corkscrew ureters) and chronic Wheatley catheter who was admitted with worsening right-sided flank pain associated
with retching and cloudy urine. CT imaging was consistent with ascending urinary tract infection/pyelonephritis. Urine cultures grew gram-negative bacilli sensitive to Augmentin; blood cultures were negative. The patient was treated with intravenous
ceftriaxone 1 g daily during hospitalization with clinical improvement. Wheatley catheter was exchanged in the emergency department on 12/12/24. Nephrology was consulted and hemodialysis was resumed in the hospital on 12/13/24 and 12/15/24. Labs
improved throughout the stay in the hospital. The patient remained afebrile, hemodynamically stable and reported improvement in flank pain. Pain control was achieved with oxycodone 5 mg q4PRN.
At the time of discharge, the patient was clinically stable with no signs of sepsis. He will be discharged home after two sessions of hemodialysis and transitioned to oral Augmentin 250 mg twice daily for 7 days to complete the antibiotic course. He
is to continue his regular [facility] hemodialysis schedule and follow up with his outpatient home theater installer, Dr. Linda Salazar for ongoing management. Patient shows understanding to this plan.
Important imaging findings :
CT abdomen/pelvis 12/12/24: Wheatley catheter is present. Diffuse bladder wall thickening with stranding of the adjacent fat, findings suggestive of cystitis.There is also significant stranding of the fat surrounding the renal pelves bilaterally, left
greater than right, concerning for ascending urinary tract infection. Mild elevation right hemidiaphragm. Trace amount of pleural fluid in the posterior right lower hemithorax. Fatty infiltration of the pancreas.
Discharge Plan
-
Patient Disposition: Home (Routine Discharge)
Discharge Diagnosis/Procedures: Ascending UTI/ Pyelonephritis
ESRD on hemodialysis
Condition: Good
Diet: As tolerated
Activity: As tolerated
Driving Restrictions: As prior to admission
Bathing Restrictions: None
Blood Work: CBC, CMP in 1 week (obtain script from PCP)
Referrals:
Stew Guardado DO [Family Provider, Family Practice] - in less than 1 week
Prescriptions:
New
amoxicillin-pot clavulanate 250-125 mg tablet
1 tab PO BID Qty: 14 0RF
Continued
therapeutic multivitamin Tablet
1 tab PO DAILY
ascorbic acid (vitamin C) [Vitamin C] 500 mg Tablet
500 mg PO DAILY
cholecalciferol (vitamin D3) [Vitamin D3] 25 mcg (1,000 unit) Tablet
25 mcg PO DAILY
Discharge Orders:
Discharge Patient (As Directed); Ordered 12/16/24
Ordered By: Kayla Brewer
Discharge Date and Time
Discharge Date/Time: 12/16/24 10:37
Print Language: DUTCH

Documented by User: Kayla Brewer MD 12/16/24 11:03
Discharge Summary
Discharge Data
Date of Admission: 12/12/24
Date of Discharge: 12/16/24
Discharge Plan
-
Patient Disposition: Home (Routine Discharge)
Discharge Diagnosis/Procedures: Ascending UTI/ Pyelonephritis
ESRD on hemodialysis
Condition: Good
Diet: As tolerated
Activity: As tolerated
Driving Restrictions: As prior to admission
Bathing Restrictions: None
Blood Work: CBC, CMP in 1 week (obtain script from PCP)
Referrals:
Stew Guardado, DO [Family Provider, Family Practice] - in less than 1 week
Prescriptions:
New
amoxicillin-pot clavulanate 250-125 mg tablet
1 tab PO BID Qty: 14 0RF
Continued
therapeutic multivitamin Tablet
1 tab PO DAILY
ascorbic acid (vitamin C) [Vitamin C] 500 mg Tablet
500 mg PO DAILY
cholecalciferol (vitamin D3) [Vitamin D3] 25 mcg (1,000 unit) Tablet
25 mcg PO DAILY
Discharge Orders:
Discharge Patient (As Directed); Ordered 12/16/24
Ordered By: Kayla Brewer
Discharge Date and Time
Discharge Date/Time: 12/16/24 10:37
Print Language: DUTCH
--- NOTE | 2024-12-16 11:19 | W.PN.NEPH.PH ---
Today's Communication / Plan
-
dc
Assessment/Plan
-
Impression:
ESRD [facility]
Suspected cystitis versus pyelonephritis
Chronic indwelling Wheatley
Anemia of chronic kidney disease-
Bilateral hearing impairment
Plan:
for dc
-
-
Date of Service: December 16, 2024
CC / HPI / ROS
-
Chief Complaint:
ESRD
History of Present Illness:
ESRD Sunday at [facility] dialysis unit
Hemodynamically stable
Remains on Rocephin for suspected UTI
tolerated HD yesterday
Review of Systems:
Bilateral hearing loss
Chronic Wheatley catheter: nonoliguric
No shortness of breath
Labs
-
Labs:
WBC 6.2 10^3/uL (4.8-10.8) 12/16/24 06:09
RBC 3.87 10^6/uL (4.70-6.10) L 12/16/24 06:09
Hgb 12.6 g/dL (13.0-18.0) L 12/16/24 06:09
Hct 37.2 % (39.0-52.0) L 12/16/24 06:09
Plt Count 144 10^3/uL (130-400) 12/16/24 06:09
Sodium 133 mmol/L (135-145) L 12/16/24 06:09
Potassium 3.3 mmol/L (3.5-5.1) L 12/16/24 06:09
Chloride 102 mmol/L (98-107) 12/16/24 06:09
Carbon Dioxide 27 mmol/L (22-30) 12/16/24 06:09
BUN 23 mg/dl (9-20) H 12/16/24 06:09
Creatinine 2.7 mg/dL (0.7-1.3) H 12/16/24 06:09
eGFR 26.33 12/16/24 06:09
Glucose 85 mg/dl (70-99) 12/16/24 06:09
Calcium 8.3 mg/dl (8.4-10.2) L 12/16/24 06:09
Albumin 3.3 g/dl (3.5-5.0) L 12/13/24 08:10
Physical Exam
-
Vital Signs:
Vital Signs
Temp Pulse Resp BP Pulse Ox
98.2 F 80 16 120/72 95
12/16/24 07:31 12/16/24 07:31 12/16/24 07:31 12/16/24 07:31 12/16/24 08:49
Cardiovascular:: Regular rate and rhythm
Respiratory:: Bilateral: Coarse
Lung Excursion:: Normal
Abdomen:: Nontender and Soft
Bowel Sounds:: Normal
Extremity Edema:: None: Bilateral:
--- NOTE | 2024-12-16 11:44 | CM ---
Patient for discharge home today. No needs anticipated. [facility] outpatient HD treatment center at discharge [phone] and will fax pt's clinical with flow sheets to [facility] [phone]. Per [facility] they requested discharge
medication sheet as well. CM will update [place] and request fax. CM will continue to follow for discharge planning needs.
Plan; home with [facility] HD treatment center to follow at discharge.
please fax pt's clinical with flow sheets to [facility]/ medication sheets [phone]
== END 2024-12-16 10:37 | disposition home or self-care (01) | DRG 698 ==
LOC: 2 NORTH 14:40
PROVIDERS: ADMITTING PHYSICIAN Hospitalist; ATTENDING PHYSICIAN General Practice; CONSULT PHYSICIAN Specialist; EMERGENCY PHYSICIAN Emergency Medicine; FAMILY PHYSICIAN Family Medicine
PROC: 5A1D70Z Performance of Urinary Filtration, Intermittent, Less than 6 Hours Per Day (ICD-10-PCS; 2024-12-13)
DX: T83.511A Infection and inflammatory reaction due to indwelling urethral catheter, initial encounter (principal); N18.6 End stage renal disease; I12.0 Hypertensive chronic kidney disease with stage 5 chronic kidney disease or end stage renal disease; N12 Tubulo-interstitial nephritis, not specified as acute or chronic; N39.0 Urinary tract infection, site not specified; Z99.2 Dependence on renal dialysis; D63.1 Anemia in chronic kidney disease; H91.93 Unspecified hearing loss, bilateral; K21.9 Gastro-esophageal reflux disease without esophagitis; Y73.2 Prosthetic and other implants, materials and accessory gastroenterology and urology devices associated with adverse incidents; Y84.6 Urinary catheterization as the cause of abnormal reaction of the patient, or of later complication, without mention of misadventure at the time of the procedure; B96.20 Unspecified Escherichia coli [E. coli] as the cause of diseases classified elsewhere; I95.1 Orthostatic hypotension; E66.9 Obesity, unspecified; E87.6 Hypokalemia; Z79.899 Other long term (current) drug therapy
CPT/HCPCS: 51702; 74176; 80048; 80053; 81003; 81015; 83735; 85025; 85610; 86706; 87040; 87070; 87077; 87086; 87186; 87340; 93005; 96374; 96375; 97162; 99285; G0257; P9047